=== PATIENT | male | born 1965 | race Asian ===

== ENCOUNTER 2017-08-08 17:16 | Emergency (ER) | payer OTHER ==
[~2017-08-08] VITALS: Ht 165.1 cm; Wt 62.0 kg
[2017-08-08] MEDS ORDERED: IBUPROFEN 600MG TABLET PO ONE (18:45)
[2017-08-08] MEDS ORDERED: ACETAMINOPHEN WITH CODEINE 300/30MG TABLET PO ONE (20:30)
[2017-08-08 21:03] VITALS: BP 151/56
== END 2017-08-08 22:32 | disposition home or self-care (01) ==
LOC: ER 17:16
DX: M25.531 Pain in right wrist (principal); M54.2 Cervicalgia; R07.9 Chest pain, unspecified; V49.88XA Car occupant (driver) (passenger) injured in other specified transport accidents, initial encounter; Y93.89 Activity, other specified; Y92.89 Other specified places as the place of occurrence of the external cause; Y99.8 Other external cause status
CPT/HCPCS: 29105; 70450; 71045; 72125; 73110; 93005; 99284